=== PATIENT | female | born 1965 | race Caucasian/White ===

== ENCOUNTER 2017-10-27 12:31 | Emergency (ER) | payer BC, OTHER ==
[2017-10-27 13:29] LABS: BASOPHILS % (AUTO) 0.4 % (0.0-5.0); EOSINOPHILS % (AUTO) 0.6 % (0.0-8.0); HEMATOCRIT 30.4 % (36-48); LYMPHOCYTES % (AUTO) 20.9 % (21.0-51.0); MEAN CORPUSCULAR HEMOGLOBIN 33.4 pg (27.0-33.0); MEAN CORPUSCULAR HGB CONC 34.8 g/dL (32.0-36.0); MEAN CORPUSCULAR VOLUME 95.8 fL (79-99); MONOCYTES % (AUTO) 6.2 % (3.0-13.0); NEUTROPHILS % (AUTO) 71.9 % (40.0-77.0); PLATELET COUNT (AUTO) 190 K/uL (130-400); RED BLOOD CELL COUNT(AUTO) 3.17 MIL/uL (4.00-5.50); RED CELL DISTRIBUTION WIDTH 14.6 % (11.0-15.5); WHITE BLOOD COUNT (AUTO) 6.6 K/uL (4.8-10.8)
[2017-10-27] MEDS ORDERED: SODIUM CHLORIDE 0.9% 1000ML 0 ML IV ONE (13:45)
[2017-10-27] MEDS ORDERED: INSULIN HUMULIN R 100 UNIT/ML 3ML ONE (13:46)
== END 2017-10-27 13:48 | disposition home or self-care (01) ==
LOC: EDH 12:31
DX: N93.9 Abnormal uterine and vaginal bleeding, unspecified (principal)
CPT/HCPCS: 36415; 85025; 99283; J1815; J7030

== ENCOUNTER 2017-10-28 16:18 | Observation (INO) | payer BC, OTHER ==
[2017-10-28] VITALS (23 sets, daily range): BP systolic 96–139; BP diastolic 47–83
[~2017-10-28] VITALS: Ht 154.9 cm; Wt 60.8 kg
[2017-10-28] MEDS ORDERED: DEXTROSE 5%-LACTATED RINGERS 1,000 ML IV SCH (16:45)
[2017-10-28 18:01] LABS: HEMATOCRIT 27.4 % (36-48); MEAN CORPUSCULAR HEMOGLOBIN 33.7 pg (27.0-33.0); MEAN CORPUSCULAR HGB CONC 35.1 g/dL (32.0-36.0); MEAN CORPUSCULAR VOLUME 96.2 fL (79-99); NUCLEATED RED BLOOD CELLS 0.1 % (0.0-0.19); PLATELET COUNT (AUTO) 167 K/uL (130-400); RED BLOOD CELL COUNT(AUTO) 2.84 MIL/uL (4.00-5.50); RED CELL DISTRIBUTION WIDTH 14.6 % (11.0-15.5); WHITE BLOOD COUNT (AUTO) 7.3 K/uL (4.8-10.8)
[2017-10-28] MEDS ORDERED: LIDOCAINE PF 2% 5ML ABBOJECT ONE (18:59)
[2017-10-28] MEDS ORDERED: ONDANSETRON HCL MDV 20ML 2 MG/ML VIAL ONE (18:59)
[2017-10-28] MEDS ORDERED: PROPOFOL 10 MG/ML 20ML VIAL IV ONE (19:00)
[2017-10-28] MEDS ORDERED: MIDAZOLAM HCL 1 MG/ML 2ML VIAL ONE (19:00)
[2017-10-28] MEDS ORDERED: FENTANYL CITRATE PF 50 MCG/1 ML 2ML VIAL ONE (19:01)
[2017-10-28] MEDS ORDERED: PHENYLEPHRINE HCL 10 MG/ML 1ML VIAL IV ONE (19:38)
[2017-10-28] MEDS ORDERED: DEXTROSE 5 %-0.45 % NACL 1,000 ML IV PRN (19:40)
[2017-10-28] MEDS ORDERED: ACETAMINOPHEN-CODEINE 300/30MG TAB PO PRN (19:45)
[2017-10-29 03:09] VITALS: BP 119/60
[2017-10-29 07:06] LABS: HEMATOCRIT 25.8 % (36-48); MEAN CORPUSCULAR HGB CONC 33.4 g/dL (32.0-36.0); MEAN CORPUSCULAR VOLUME 95.8 fL (79-99); PLATELET COUNT (AUTO) 166 K/uL (130-400); RED CELL DISTRIBUTION WIDTH 14.7 % (11.0-15.5); WHITE BLOOD COUNT (AUTO) 6.9 K/uL (4.8-10.8)
[2017-10-29 07:39] VITALS: BP 101/71
[2017-10-29] MEDS ORDERED: IBUPROFEN 800 MG TAB PO SCH ×2 (09:00→19:45)
[2017-10-29 11:23] VITALS: BP 100/49
== END 2017-10-29 13:00 | disposition home or self-care (01) ==
LOC: WSH 16:18 → EDSTATUS 19:00
PROVIDERS: ADMIT Specialist; ATTEND Specialist
DX: N92.4 Excessive bleeding in the premenopausal period (principal); D64.9 Anemia, unspecified
CPT/HCPCS: 36415 ×2; 58120; 85027 ×2; 88305; A4351; G0378 ×22; J2001; J2250; J2370; J2704; J3010

== ENCOUNTER 2019-03-13 19:09 | Emergency (ER) | payer BC, OTHER ==
[2019-03-13 20:11] LABS: BASOPHILS % (AUTO) 0.3 % (0.0-5.0); EOSINOPHILS % (AUTO) 0.3 % (0.0-8.0); HEMATOCRIT 38.3 % (36-48); LYMPHOCYTES % (AUTO) 19.6 % (21.0-51.0); MEAN CORPUSCULAR HEMOGLOBIN 31.1 pg (27.0-33.0); MEAN CORPUSCULAR HGB CONC 33.2 g/dL (32.0-36.0); MEAN CORPUSCULAR VOLUME 93.8 fL (79-99); MONOCYTES % (AUTO) 7.7 % (3.0-13.0); NEUTROPHILS % (AUTO) 72.1 % (40.0-77.0); PLATELET COUNT (AUTO) 201 K/uL (130-400); RED BLOOD CELL COUNT(AUTO) 4.09 MIL/uL (4.00-5.50); RED CELL DISTRIBUTION WIDTH 15.7 % (11.0-15.5); WHITE BLOOD COUNT (AUTO) 9.6 K/uL (4.8-10.8)
[2019-03-13 20:22] LABS: CREATININE 0.7 mg/dL (0.5-1.5); POTASSIUM 3.6 mmol/L (3.5-5.1)
[2019-03-13 21:00] LABS: APPEARANCE,URINE CLOUDY (CLEAR); BILIRUBIN,URINE NEGATIVE (NEGATIVE); COLOR,URINE ORANGE (YELLOW); GLUCOSE, URINE (UA) NEGATIVE (NEGATIVE); KETONES,URINE 15 mg/dL (NEGATIVE); LEUKOCYTE ESTERASE ,URINE TRACE (NEGATIVE); NITRATE,URINE NEGATIVE (NEGATIVE); OCCULT BLOOD,URINE LARGE (NEGATIVE); PROTEIN,URINE 100 mg/dL (NEGATIVE); UROBILINOGEN,URINE 0.2 mg/dL (0.2-1.0)
[2019-03-13 21:09] LABS: BACTERIA,URINE Rare /HPF (None Seen); RBC,URINE TNTC /HPF (0-1)
[2019-03-13 21:10] LABS: SQUAMOUS EPITHELIAL CELL,UR Rare /HPF (0-2)
[2019-03-13 21:17] LABS: HCG,QUAL RESULT NEGATIVE (NEGATIVE)
== END 2019-03-13 22:12 | disposition home or self-care (01) ==
LOC: EDH 19:09
DX: N93.9 Abnormal uterine and vaginal bleeding, unspecified (principal); D25.9 Leiomyoma of uterus, unspecified
CPT/HCPCS: 36415; 76830; 76856; 80048; 81001; 81025; 85025